=== PATIENT | male | born 1945 | race Hispanic/Latino ===

== ENCOUNTER 2019-02-25 19:04 | Emergency (ER) | payer MEDICARE, MEDICAID ==
--- NOTE | 2019-02-25 20:24 | CT ---
CT head noncontrast HISTORY: Fall. Head injury. FINDINGS: There is no evidence of acute intracranial hemorrhage or infarct. Mild diffuse cortical atr ophy and chronic ischemic small vessel disease. There is no mass effect or shift of midline structures. Visualized paranasal sinuses remain well aerated. IMPRESSION: No acute intracranial abnormalities are demonstrated.
--- NOTE | 2019-02-25 20:57 | RAD ---
RADIOGRAPH RIGHT SHOULDER 3VIEWS: DATE: 02/25/2019 HISTORY: 73-year-old male with acute traumatic right shoulder pain from fall. FINDINGS: There is no dislocation. No fracture is identified. IMPRESSION: No fracture.
--- NOTE | 2019-02-25 21:53 | RAD ---
AP pelvis one view HISTORY: Fall. Pelvic injury. FINDINGS: Sacral alae and pelvic rings are intact. Degenerative changes of the lumbar spine and hips. Postoperative changes of the lumbar spine partially visualized. No displaced fractures are apparent. IMPRESSION: No acute osseous abnormalities are demonstrated.
--- NOTE | 2019-02-25 21:55 | RAD ---
Right RIBS 3 views Chest one view HISTORY: Fall. Chest injury. FINDINGS: Old healed fractures of the posterolateral aspects of right ribs 5 and 8. No acute fracture s evident. No pneumothorax. Mild linear atelectasis at the lung bases, stable. Mediastinum is midline. IMPRESSION: Old right rib fractures. No acute abnormalities are demonstrated.
[2019-02-25] MEDS ORDERED: HYDROcodone/Acetaminophen 5/325 mg Tablet ONE (22:55)
== END 2019-02-25 23:00 | disposition home or self-care (01) ==
LOC: ERS 19:04
DX: S00.81XA Abrasion of other part of head, initial encounter (principal); S80.212A Abrasion, left knee, initial encounter; S80.211A Abrasion, right knee, initial encounter; E78.5 Hyperlipidemia, unspecified; E78.00 Pure hypercholesterolemia, unspecified; R73.03 Prediabetes; I10 Essential (primary) hypertension; Z79.82 Long term (current) use of aspirin; Z79.899 Other long term (current) drug therapy; Z79.84 Long term (current) use of oral hypoglycemic drugs; W01.0XXA Fall on same level from slipping, tripping and stumbling without subsequent striking against object, initial encounter
CPT/HCPCS: 70450; 72170

== ENCOUNTER 2019-10-22 14:56 | Emergency (ER) | payer MEDICARE, MEDICAID, OTHER ==
[2019-10-23 13:48] LABS: SARS-CoV-2 MS2 Positive; SARS-CoV-2 N Gene Positive; SARS-CoV-2 S Gene Positive; SARS-CoV-2 orf1ab Positive
== END 2019-10-22 15:50 | disposition home or self-care (01) ==
LOC: ERS 14:56
DX: U07.1 COVID-19 (principal); E78.5 Hyperlipidemia, unspecified; E78.00 Pure hypercholesterolemia, unspecified; I10 Essential (primary) hypertension; R73.03 Prediabetes; N40.0 Benign prostatic hyperplasia without lower urinary tract symptoms; Z79.82 Long term (current) use of aspirin; Z79.84 Long term (current) use of oral hypoglycemic drugs; Z79.899 Other long term (current) drug therapy
CPT/HCPCS: 99283; U0003; 87635

== ENCOUNTER 2020-07-14 09:37 | Outpatient (CLI) | payer MEDICARE, MEDICAID | END 2020-07-14 09:38 | disposition home or self-care (01) | LOC: BICRAD 09:37 | PROVIDERS: ATTEND Family Medicine | DX: M25.511 Pain in right shoulder (principal); M25.551 Pain in right hip; M79.605 Pain in left leg; M79.641 Pain in right hand; M25.531 Pain in right wrist; M79.631 Pain in right forearm ==

== ENCOUNTER 2020-12-31 15:02 | Outpatient (CLI) | payer MEDICARE, MEDICAID | END 2020-12-31 15:03 | disposition home or self-care (01) | LOC: BICRAD 15:02 | PROVIDERS: ATTEND Family Medicine | DX: J44.9 Chronic obstructive pulmonary disease, unspecified (principal) | CPT/HCPCS: 71046 ==

== ENCOUNTER 2022-05-12 09:43 | Outpatient (CLI) | payer OTHER, MEDICAID | END 2022-05-12 09:44 | disposition home or self-care (01) | LOC: BICRAD 09:43 → ULT 09:44 | PROVIDERS: ATTEND Family Medicine | DX: M79.89 Other specified soft tissue disorders (principal); M79.604 Pain in right leg; M79.605 Pain in left leg; R91.8 Other nonspecific abnormal finding of lung field; I51.7 Cardiomegaly; J98.4 Other disorders of lung; M71.21 Synovial cyst of popliteal space [Baker], right knee | CPT/HCPCS: 71046; 93970 ==

== ENCOUNTER 2022-06-06 07:48 | Outpatient (CLI) | payer OTHER, MEDICAID | END 2022-06-06 07:49 | disposition home or self-care (01) | LOC: ULT 07:48 | PROVIDERS: ATTEND Nurse Practitioner Family | DX: I50.32 Chronic diastolic (congestive) heart failure (principal) | CPT/HCPCS: 76775 ==

== ENCOUNTER 2022-12-26 08:41 | Emergency (ER) | payer OTHER, MEDICAID ==
[2022-12-26] MEDS ORDERED: Acetaminophen 500 MG TAB ONE (09:09)
[2022-12-26] MEDS ORDERED: HYDROcodone/Acetaminophen 5/325 mg Tablet ONE ×2 (09:44→09:47)
== END 2022-12-26 12:33 | disposition home or self-care (01) ==
LOC: ERS 08:41
DX: S13.4XXA Sprain of ligaments of cervical spine, initial encounter (principal); I10 Essential (primary) hypertension; E11.9 Type 2 diabetes mellitus without complications; Z79.84 Long term (current) use of oral hypoglycemic drugs; Z79.899 Other long term (current) drug therapy; V89.2XXA Person injured in unspecified motor-vehicle accident, traffic, initial encounter
CPT/HCPCS: 70450; 71045; 72125

== ENCOUNTER 2022-12-30 15:41 | Inpatient (IN) | payer OTHER, MEDICAID ==
[2022-12-30] MEDS ORDERED: Iopamidol-370 76% 500 ML MDV (1 ML CHARGE) ONE (15:43)
[2022-12-30 16:37] LABS: #Eosinphils 0.1 thou/uL (0.0-0.7); #Monocytes 0.7 thou/uL (0.11-0.59); #Neutrophils 5.5 thou/uL (1.40-6.50); %Basophils 0.4 % (0.0-1.0); %Eosinophils 1.2 % (0.0-10.0); %Lymphocytes 14.6 % (21.0-51.0); %Monocytes 9.7 % (0.0-10.0); %Neutrophils 73.6 % (42.0-75.0); Hematocrit 32.6 % (42.0-52.0); Hemoglobin 10.3 g/dL (14.0-18.0); Mean Corpuscular HGB CONC 31.6 g/dL (32.0-36.0); Mean Corpuscular Hemoglobin 27.8 pg (27.0-31.0); Mean Corpuscular Volume 88.1 fl (78.0-98.0); Mean Platelet Volume 9.5 fL (7.4-10.4); Platelet Count 223 10x3/uL (130-400); RBC Distribution Width 15.8 % (11.5-14.5); White Blood Cell (WBC) Count 7.4 10x3/uL (4.8-10.8)
[2022-12-30 16:53] LABS: INR-International Normal Ratio 1.2; Prothrombin Time 15.2 sec (12.0-14.7)
[2022-12-30 16:54] LABS: PTT 29.4 sec (22.9-36.1)
[2022-12-30] MEDS ORDERED: Morphine 4 MG/ML VIAL ONE ×2 (16:56→18:46)
[2022-12-30 16:58] LABS: ALT (SGPT) 24 U/L (8-55); AST (SGOT) 21 U/L (5-34); Albumin 3.1 g/dL (3.4-4.8); Alkaline Phosphatase 65 U/L (40-110); Anion Gap 16 mmol/L (10-20); BUN (Urea Nitrogen) 20 mg/dL (8.4-25.7); Bilirubin, Total 0.7 mg/dL (0.2-1.2); Calc. Creatinine Clearance 0 mL/min (70-130); Calcium 8.9 mg/dL (7.8-10.44); Carbon Dioxide 17 mmol/L (23-31); Chloride 104 mmol/L (98-107); Estimated GFR 87; Globulin 3.6 g/dL (2.4-3.5); Glucose 169 mg/dL (83-110); Potassium 4.2 mmol/L (3.5-5.1); Protein, Total 6.7 g/dL (5.8-8.1); Sodium 133 mmol/L (136-145)
[2022-12-30] MEDS ORDERED: Ipratropium/Albuterol 3 ML NEB NEB PRN (19:18)
[2022-12-30] MEDS ORDERED: Ondansetron PF 4 MG/2 ML Vial IVP PRN (19:18)
[2022-12-30] MEDS ORDERED: Morphine 2 MG/ML VIAL SLOW IVP PRN (19:18)
[2022-12-30] MEDS ORDERED: hydrALAZINE 20 MG/ML VIAL SLOW IVP PRN (19:18)
[2022-12-30] MEDS ORDERED: traMADol HCl 50 MG TAB PO PRN (19:20)
[2022-12-30] MEDS: Acetaminophen 500 MG TAB PO SCH (22:21)
[2022-12-30] MEDS: Gabapentin 300 MG CAP PO SCH (22:49)
[2022-12-30] MEDS: Senokot S 8.6-50 MG TAB PO SCH (22:49)
[2022-12-30] MEDS: Famotidine/PF 20 mg/2ml Vial SLOW IVP SCH (22:49)
[2022-12-30] MEDS: traMADol HCl 50 MG TAB PO SCH (22:50)
[2022-12-30] MEDS: Sodium Chloride 0.9% 1,000 ML IV SCH (22:50)
[2022-12-30 23:14] VITALS: BMI 29.0
[2022-12-31] MEDS: Acetaminophen 500 MG TAB PO SCH ×2 (00:44→17:47)
[2022-12-31] MEDS: traMADol HCl 50 MG TAB PO SCH (05:52)
[2022-12-31] MEDS: Sodium Chloride 0.9% 1,000 ML IV SCH (05:53)
[2022-12-31 06:58] LABS: #Eosinphils 0.2 thou/uL (0.0-0.7); #Neutrophils 4.1 thou/uL (1.40-6.50); %Basophils 0.5 % (0.0-1.0); %Eosinophils 2.6 % (0.0-10.0); %Lymphocytes 20.6 % (21.0-51.0); %Monocytes 14.5 % (0.0-10.0); %Neutrophils 61.3 % (42.0-75.0); Hematocrit 31.3 % (42.0-52.0); Hemoglobin 9.7 g/dL (14.0-18.0); Mean Corpuscular Hemoglobin 27.3 pg (27.0-31.0); Mean Corpuscular Volume 88.2 fl (78.0-98.0); Mean Platelet Volume 9.3 fL (7.4-10.4); Platelet Count 212 10x3/uL (130-400); Red Blood Cell (RBC) Count 3.55 mill/uL (4.70-6.10); White Blood Cell (WBC) Count 6.6 10x3/uL (4.8-10.8)
[2022-12-31 07:12] LABS: INR-International Normal Ratio 1.2; PTT 26.7 sec (22.9-36.1); Prothrombin Time 15.3 sec (12.0-14.7)
[2022-12-31 07:27] LABS: Anion Gap 9 mmol/L (10-20); BUN (Urea Nitrogen) 20 mg/dL (8.4-25.7); Calc. Creatinine Clearance 91 mL/min (70-130); Calcium 8.6 mg/dL (7.8-10.44); Carbon Dioxide 24 mmol/L (23-31); Chloride 104 mmol/L (98-107); Estimated GFR 91; Glucose 126 mg/dL (83-110); Sodium 133 mmol/L (136-145)
[2022-12-31] MEDS ORDERED: Polyethylene Glycol 3350 17 GM Packet PO SCH (09:00)
[2022-12-31] MEDS: Gabapentin 300 MG CAP PO SCH ×3 (09:21→20:51)
[2022-12-31] MEDS: Senokot S 8.6-50 MG TAB PO SCH ×2 (09:22→20:51)
[2022-12-31] MEDS: Famotidine/PF 20 mg/2ml Vial SLOW IVP SCH ×2 (09:22→20:51)
[2022-12-31] MEDS: Furosemide 20 MG TAB PO SCH ×2 (14:54→20:51)
[2022-12-31] MEDS: Rosuvastatin 20 MG TAB PO SCH (14:54)
[2022-12-31] MEDS: Loratadine 10 MG TAB PO SCH (14:55)
[2022-12-31] MEDS: Acetaminophen 325 MG TAB PO SCH ×3 (14:55→22:06)
[2022-12-31] MEDS ORDERED: Aspirin 325 mg Enteric Coated Tablet PO SCH (16:45)
[2022-12-31] MEDS: Tamsulosin HCl 0.4 MG CAP PO SCH (18:06)
[2023-01-01] MEDS: Acetaminophen 325 MG TAB PO SCH ×4 (05:08→23:15)
[2023-01-01] MEDS ORDERED: Aspirin 325 MG TAB PO SCH (09:00)
[2023-01-01] MEDS: Famotidine/PF 20 mg/2ml Vial SLOW IVP SCH ×2 (10:34→22:56)
[2023-01-01] MEDS: Loratadine 10 MG TAB PO SCH (10:35)
[2023-01-01] MEDS: Furosemide 20 MG TAB PO SCH ×2 (10:35→22:33)
[2023-01-01] MEDS: Senokot S 8.6-50 MG TAB PO SCH ×2 (10:35→22:34)
[2023-01-01] MEDS: Rosuvastatin 20 MG TAB PO SCH (10:35)
[2023-01-01] MEDS: Gabapentin 300 MG CAP PO SCH ×3 (10:36→22:34)
[2023-01-01] MEDS: Aspirin 81 mg Enteric Coated Tablet PO SCH (10:36)
[2023-01-01] MEDS: Polyethylene Glycol 3350 17 GM Packet PO SCH (10:37)
[2023-01-01] MEDS: Tamsulosin HCl 0.4 MG CAP PO SCH ×2 (10:39→17:43)
[2023-01-01] MEDS: HYDROcodone/Acetaminophen 10/325 mg Tablet PO PRN (22:35)
[2023-01-02] MEDS: Acetaminophen 325 MG TAB PO SCH ×4 (04:22→23:53)
[2023-01-02 06:28] LABS: #Eosinphils 0.2 thou/uL (0.0-0.7); #Monocytes 0.8 thou/uL (0.11-0.59); #Neutrophils 4.5 thou/uL (1.40-6.50); %Basophils 0.4 % (0.0-1.0); %Eosinophils 3.2 % (0.0-10.0); %Lymphocytes 18.1 % (21.0-51.0); %Monocytes 11.6 % (0.0-10.0); %Neutrophils 66.1 % (42.0-75.0); Hemoglobin 9.9 g/dL (14.0-18.0); Mean Corpuscular HGB CONC 30.9 g/dL (32.0-36.0); Mean Corpuscular Hemoglobin 27.5 pg (27.0-31.0); Mean Corpuscular Volume 88.9 fl (78.0-98.0); Mean Platelet Volume 9.1 fL (7.4-10.4); Platelet Count 238 10x3/uL (130-400); RBC Distribution Width 16.2 % (11.5-14.5); White Blood Cell (WBC) Count 6.8 10x3/uL (4.8-10.8)
[2023-01-02 06:53] LABS: Anion Gap 12 mmol/L (10-20); BUN (Urea Nitrogen) 18 mg/dL (8.4-25.7); Calc. Creatinine Clearance 73 mL/min (70-130); Calcium 8.7 mg/dL (7.8-10.44); Carbon Dioxide 26 mmol/L (23-31); Chloride 102 mmol/L (98-107); Estimated GFR 78; Glucose 201 mg/dL (83-110); Phosphorus 3.9 mg/dL (2.3-4.7); Potassium 4.3 mmol/L (3.5-5.1); Sodium 136 mmol/L (136-145)
[2023-01-02] MEDS: Loratadine 10 MG TAB PO SCH (08:32)
[2023-01-02] MEDS: Furosemide 20 MG TAB PO SCH ×2 (08:32→20:15)
[2023-01-02] MEDS: Famotidine/PF 20 mg/2ml Vial SLOW IVP SCH ×2 (08:33→20:15)
[2023-01-02] MEDS: Senokot S 8.6-50 MG TAB PO SCH ×2 (08:33→20:15)
[2023-01-02] MEDS: Gabapentin 300 MG CAP PO SCH ×3 (08:33→20:14)
[2023-01-02] MEDS: Rosuvastatin 20 MG TAB PO SCH (08:33)
[2023-01-02] MEDS: Aspirin 81 mg Enteric Coated Tablet PO SCH (08:33)
[2023-01-02] MEDS: Tamsulosin HCl 0.4 MG CAP PO SCH ×2 (08:33→15:42)
[2023-01-02] MEDS: Polyethylene Glycol 3350 17 GM Packet PO SCH (08:34)
[2023-01-02] MEDS: HYDROcodone/Acetaminophen 10/325 mg Tablet PO PRN (20:13)
[2023-01-02] MEDS: Atorvastatin Calcium 40 MG TAB PO SCH (20:15)
[2023-01-03] MEDS: Acetaminophen 325 MG TAB PO SCH ×4 (06:03→23:27)
[2023-01-03 06:09] LABS: Hemoglobin A1c 9.2 % (4.0-6.0)
[2023-01-03 06:14] LABS: Cardiac Risk 3.4 (Less than 4.5)
[2023-01-03] MEDS: Furosemide 20 MG TAB PO SCH ×2 (08:51→20:32)
[2023-01-03] MEDS: Aspirin 81 mg Enteric Coated Tablet PO SCH (08:51)
[2023-01-03] MEDS: Rosuvastatin 20 MG TAB PO SCH (08:51)
[2023-01-03] MEDS: Tamsulosin HCl 0.4 MG CAP PO SCH ×2 (08:51→18:33)
[2023-01-03] MEDS: Loratadine 10 MG TAB PO SCH (08:51)
[2023-01-03] MEDS: Gabapentin 300 MG CAP PO SCH ×3 (08:51→20:32)
[2023-01-03] MEDS: Senokot S 8.6-50 MG TAB PO SCH ×2 (08:51→20:32)
[2023-01-03] MEDS: Famotidine/PF 20 mg/2ml Vial SLOW IVP SCH (08:53)
[2023-01-03] MEDS: HYDROcodone/Acetaminophen 10/325 mg Tablet PO PRN ×2 (09:08→20:31)
[2023-01-03] MEDS: Polyethylene Glycol 3350 17 GM Packet PO SCH (09:16)
[2023-01-03] MEDS ORDERED: Ipratropium/Albuterol 3 ML NEB NEB PRN (13:47)
[2023-01-03] MEDS ORDERED: Ibuprofen 600 MG TAB PO PRN (17:51)
[2023-01-03] MEDS: traMADol HCl 50 MG TAB PO PRN (18:33)
[2023-01-03] MEDS: Ipratropium/Albuterol 3 ML NEB NEB SCH (19:16)
[2023-01-03] MEDS: Atorvastatin Calcium 40 MG TAB PO SCH (20:32)
[2023-01-03] MEDS: Cyclobenzaprine 10 MG TAB PO PRN (20:32)
[2023-01-03] MEDS ORDERED: Famotidine 20 MG TAB PO SCH (21:00)
[2023-01-04] MEDS: Acetaminophen 325 MG TAB PO SCH ×5 (04:27→23:46)
[2023-01-04] MEDS: traMADol HCl 50 MG TAB PO PRN (05:35)
[2023-01-04] MEDS: Cyclobenzaprine 10 MG TAB PO PRN (05:35)
[2023-01-04] MEDS: Ipratropium/Albuterol 3 ML NEB NEB SCH ×2 (07:37→13:14)
[2023-01-04] MEDS: Loratadine 10 MG TAB PO SCH (09:17)
[2023-01-04] MEDS: Aspirin 81 mg Enteric Coated Tablet PO SCH (09:17)
[2023-01-04] MEDS: Gabapentin 300 MG CAP PO SCH ×3 (09:17→21:23)
[2023-01-04] MEDS: Furosemide 20 MG TAB PO SCH ×2 (09:17→21:24)
[2023-01-04] MEDS: Rosuvastatin 20 MG TAB PO SCH (09:17)
[2023-01-04] MEDS: Tamsulosin HCl 0.4 MG CAP PO SCH ×2 (09:18→17:47)
[2023-01-04] MEDS: Polyethylene Glycol 3350 17 GM Packet PO SCH (09:19)
[2023-01-04] MEDS: Senokot S 8.6-50 MG TAB PO SCH ×2 (09:19→21:23)
[2023-01-04] MEDS ORDERED: Losartan 25 MG TAB PO SCH (09:45)
[2023-01-04 11:55] LABS: #Eosinphils 0.2 thou/uL (0.0-0.7); #Monocytes 0.7 thou/uL (0.11-0.59); #Neutrophils 5.4 thou/uL (1.40-6.50); %Basophils 0.3 % (0.0-1.0); %Eosinophils 2.9 % (0.0-10.0); %Lymphocytes 16.6 % (21.0-51.0); %Monocytes 9.6 % (0.0-10.0); %Neutrophils 70.2 % (42.0-75.0); Hemoglobin 10.5 g/dL (14.0-18.0); Mean Corpuscular HGB CONC 30.9 g/dL (32.0-36.0); Mean Corpuscular Hemoglobin 27.3 pg (27.0-31.0); Mean Corpuscular Volume 88.3 fl (78.0-98.0); Mean Platelet Volume 9.1 fL (7.4-10.4); Platelet Count 301 10x3/uL (130-400); RBC Distribution Width 16.9 % (11.5-14.5); Red Blood Cell (RBC) Count 3.85 mill/uL (4.70-6.10); White Blood Cell (WBC) Count 7.7 10x3/uL (4.8-10.8)
[2023-01-04] MEDS: HYDROcodone/Acetaminophen 10/325 mg Tablet PO PRN (21:24)
[2023-01-04] MEDS: Atorvastatin Calcium 40 MG TAB PO SCH (21:24)
[2023-01-05] MEDS: Acetaminophen 325 MG TAB PO SCH ×3 (04:18→16:47)
[2023-01-05] MEDS: Furosemide 20 MG TAB PO SCH (09:00)
[2023-01-05] MEDS ORDERED: Losartan 25 MG TAB PO SCH (09:00)
[2023-01-05] MEDS: Tamsulosin HCl 0.4 MG CAP PO SCH ×2 (09:00→16:47)
[2023-01-05] MEDS: Polyethylene Glycol 3350 17 GM Packet PO SCH (09:00)
[2023-01-05] MEDS: Aspirin 81 mg Enteric Coated Tablet PO SCH (09:00)
[2023-01-05] MEDS: Senokot S 8.6-50 MG TAB PO SCH (09:01)
[2023-01-05] MEDS: Rosuvastatin 20 MG TAB PO SCH (09:02)
[2023-01-05] MEDS: Gabapentin 300 MG CAP PO SCH ×2 (09:02→14:41)
[2023-01-05] MEDS: Loratadine 10 MG TAB PO SCH (09:02)
[2023-01-05 12:41] VITALS: TEMP 98.3
[2023-01-05 16:49] VITALS: BP 155/90
== END 2023-01-05 16:55 | DRG 65 ==
LOC: ERS 15:41 → SJJU 19:20
PROVIDERS: ADMIT Surgery; ATTEND Surgery
DX: I63.81 Other cerebral infarction due to occlusion or stenosis of small artery (principal); G81.94 Hemiplegia, unspecified affecting left nondominant side; S22.049A Unspecified fracture of fourth thoracic vertebra, initial encounter for closed fracture; S22.039A Unspecified fracture of third thoracic vertebra, initial encounter for closed fracture; S22.029A Unspecified fracture of second thoracic vertebra, initial encounter for closed fracture; S22.21XA Fracture of manubrium, initial encounter for closed fracture; S22.31XA Fracture of one rib, right side, initial encounter for closed fracture; S22.019A Unspecified fracture of first thoracic vertebra, initial encounter for closed fracture; S12.600A Unspecified displaced fracture of seventh cervical vertebra, initial encounter for closed fracture; S22.079A Unspecified fracture of T9-T10 vertebra, initial encounter for closed fracture; E78.00 Pure hypercholesterolemia, unspecified; Z79.899 Other long term (current) drug therapy; Z79.84 Long term (current) use of oral hypoglycemic drugs; Z98.890 Other specified postprocedural states; E78.5 Hyperlipidemia, unspecified; E11.22 Type 2 diabetes mellitus with diabetic chronic kidney disease; I12.9 Hypertensive chronic kidney disease with stage 1 through stage 4 chronic kidney disease, or unspecified chronic kidney disease; N18.9 Chronic kidney disease, unspecified; J44.9 Chronic obstructive pulmonary disease, unspecified; N40.0 Benign prostatic hyperplasia without lower urinary tract symptoms; Z79.82 Long term (current) use of aspirin; V49.9XXA Car occupant (driver) (passenger) injured in unspecified traffic accident, initial encounter
CPT/HCPCS: 36415; 70496; 70498; 70551; 71045; 71260; 72128; 72141; 72146; 72148; 74177; 80048; 80053; 80061; 83036; 83735; 84100; 84443; 85025; 85610; 85730; 93005; 93306; 94640; 96374; 96376; G0390; J1650; J2270; J7050; J7620; Q9967; S0028

== ENCOUNTER 2024-01-01 14:12 | Inpatient (IN) | payer MEDICARE, OTHER ==
[2024-01-01 15:32] LABS: #Basophils 0.04 10x3/uL (0.0-0.2); %Basophils 0.4 % (0.0-1.0); %Eosinophils 1.9 % (0.0-10.0); %Lymphocytes 14.9 % (21.0-51.0); %Monocytes 9.1 % (0.0-10.0); %Neutrophils 73.5 % (42.0-75.0); Hematocrit 22.2 % (42.0-52.0); Hemoglobin 6.3 g/dL (14.0-18.0); Mean Corpuscular HGB CONC 28.4 g/dL (32.0-36.0); Mean Corpuscular Hemoglobin 19.9 pg (27.0-31.0); Mean Corpuscular Volume 70.3 fL (78.0-98.0); Mean Platelet Volume 8.8 fL (7.4-10.4); Platelet Count 442 10x3/uL (130-400); RBC Distribution Width 17.7 % (11.5-14.5); Red Blood Cell (RBC) Count 3.16 mill/uL (4.70-6.10)
[2024-01-01 15:53] LABS: ALT (SGPT) 5 U/L (8-55); AST (SGOT) 9 U/L (5-34); Albumin 2.9 g/dL (3.4-4.8); Alkaline Phosphatase 74 U/L (40-110); Anion Gap 15 mmol/L (10-20); BUN (Urea Nitrogen) 21 mg/dL (8.4-25.7); Bilirubin, Total 0.4 mg/dL (0.2-1.2); Calc. Creatinine Clearance 0 mL/min (70-130); Calcium 8.4 mg/dL (7.8-10.44); Carbon Dioxide 21 mmol/L (23-31); Chloride 104 mmol/L (98-107); Estimated GFR 58; Globulin 3.8 g/dL (2.4-3.5); Glucose 174 mg/dL (83-110); Potassium 4.2 mmol/L (3.5-5.1); Protein, Total 6.7 g/dL (5.8-8.1); Sodium 136 mmol/L (136-145)
[2024-01-01 15:56] LABS: Troponin I Less than 0.010 ng/mL (< 0.028)
[2024-01-01 15:57] LABS: INR-International Normal Ratio 1.1; Prothrombin Time 14.6 sec (12.0-14.7)
[2024-01-01 15:58] LABS: PTT 26.8 sec (22.9-36.1)
[2024-01-01 16:01] LABS: Anisocytosis SLIGHT = 6-15 cells HPF (0-5); Hypochromia SLIGHT = 6-15 cells HPF (0-5); Ovalocytes SLIGHT = 2-5 cells HPF (0-1); Platelet Adequacy Comment Platelets Increased; Polychromasia SLIGHT = 2-3 cells HPF (0-2); Schistocytes SLIGHT = 2-5 cells HPF (0-1); Target Cells SLIGHT = 2-5 cells HPF (0-1)
[2024-01-01] MEDS ORDERED: Acetaminophen 325 MG TAB PO PRN (17:15)
[2024-01-01] MEDS ORDERED: Acetaminophen 650 MG Suppository PR PRN (17:15)
[2024-01-01 18:22] LABS: Iron 8 ug/dL (65-175); Iron Binding Capacity, Total 344 mcg/dL (261-462); Transferrin, Serum 275 mg/dL (163-344)
[2024-01-01 18:43] LABS: Ferritin Less than 2.00 ng/mL (22-322); Vitamin B12 512 pg/mL (211-911)
[2024-01-01 20:18] VITALS: BMI 32.3
[2024-01-01] MEDS ORDERED: Glucagon 1 MG/ML KIT IM PRN (21:38)
[2024-01-01] MEDS ORDERED: Dextrose 5% in Water 1,000 ML IV PRN (21:38)
[2024-01-01] MEDS ORDERED: Dextrose 50% Abboject 50 ML SYRINGE SLOW IVP PRN (21:38)
[2024-01-01] MEDS ORDERED: Sodium Ferric Gluconate 250 MG in Sodium Chloride 0.9% 250 ML 250 ML IVPB SCH (21:45)
[2024-01-02 00:07] LABS: Bacteria/HPF None Seen HPF (None Seen); Bilirubin Negative (Negative); Blood, Urine Negative (Negative); CAUTI Indications for Culture Alt mental st,lethar; Clarity Clear (Clear); Glucose, Urine (Dipstick) Normal (Negative); Ketone, Urine Negative (Negative); Leukocyte Negative Leu/uL (Negative); Nitrite Negative (Negative); Protein, Urine (Dipstick) 10 mg/dL (Neg-Trace); RBC/HPF 0-3 HPF (0-3); Specific Gravity, Urine 1.014 (1.002-1.036); Squamous Epithelial None Seen HPF (0-3); WBC/HPF 0-3 HPF (0-3)
[2024-01-02 00:16] LABS: Urine Culture Reflex No No
[2024-01-02 02:32] LABS: #Basophils 0.04 10x3/uL (0.0-0.2); %Basophils 0.4 % (0.0-1.0); %Eosinophils 2.2 % (0.0-10.0); %Lymphocytes 15.1 % (21.0-51.0); %Monocytes 10.9 % (0.0-10.0); %Neutrophils 71.1 % (42.0-75.0); Hematocrit 25.2 % (42.0-52.0); Hemoglobin 7.5 g/dL (14.0-18.0); Mean Corpuscular HGB CONC 29.8 g/dL (32.0-36.0); Mean Corpuscular Hemoglobin 21.5 pg (27.0-31.0); Mean Corpuscular Volume 72.2 fL (78.0-98.0); Mean Platelet Volume 8.6 fL (7.4-10.4); Platelet Count 401 10x3/uL (130-400); RBC Distribution Width 18.3 % (11.5-14.5); Red Blood Cell (RBC) Count 3.49 mill/uL (4.70-6.10)
[2024-01-02 03:13] LABS: ALT (SGPT) 6 U/L (8-55); AST (SGOT) 10 U/L (5-34); Albumin 2.7 g/dL (3.4-4.8); Alkaline Phosphatase 76 U/L (40-110); Anion Gap 13 mmol/L (10-20); BUN (Urea Nitrogen) 18 mg/dL (8.4-25.7); Calc. Creatinine Clearance 72 mL/min (70-130); Calcium 8.7 mg/dL (7.8-10.44); Carbon Dioxide 23 mmol/L (23-31); Chloride 105 mmol/L (98-107); Estimated GFR 72; Globulin 3.8 g/dL (2.4-3.5); Glucose 222 mg/dL (83-110); Protein, Total 6.5 g/dL (5.8-8.1); Sodium 137 mmol/L (136-145)
[2024-01-02 06:24] LABS: #Basophils 0.03 10x3/uL (0.0-0.2); %Basophils 0.3 % (0.0-1.0); %Eosinophils 2.4 % (0.0-10.0); Hematocrit 23.6 % (42.0-52.0); Mean Corpuscular HGB CONC 29.7 g/dL (32.0-36.0); Mean Corpuscular Hemoglobin 21.5 pg (27.0-31.0); Mean Corpuscular Volume 72.6 fL (78.0-98.0); Platelet Count 383 10x3/uL (130-400); RBC Distribution Width 17.7 % (11.5-14.5); Red Blood Cell (RBC) Count 3.25 mill/uL (4.70-6.10)
[2024-01-02 06:25] LABS: Hematocrit 24.1 % (42.0-52.0); Hemoglobin 7.1 g/dL (14.0-18.0)
[2024-01-02 06:37] LABS: Anion Gap 14 mmol/L (10-20); BUN (Urea Nitrogen) 17 mg/dL (8.4-25.7); Calc. Creatinine Clearance 80 mL/min (70-130); Calcium 8.4 mg/dL (7.8-10.44); Carbon Dioxide 19 mmol/L (23-31); Chloride 107 mmol/L (98-107); Estimated GFR 82; Glucose 199 mg/dL (83-110); Potassium 4.1 mmol/L (3.5-5.1); Sodium 136 mmol/L (136-145)
[2024-01-02] MEDS: Pantoprazole DR 40 MG TAB PO SCH (08:48)
[2024-01-02] MEDS ORDERED: Ipratropium/Albuterol 3 ML NEB NEB PRN (09:21)
[2024-01-02 11:59] VITALS: BMI 32.3
[2024-01-02 15:11] LABS: Anion Gap 13 mmol/L (10-20); BUN (Urea Nitrogen) 15 mg/dL (8.4-25.7); Calc. Creatinine Clearance 82 mL/min (70-130); Calcium 8.4 mg/dL (7.8-10.44); Carbon Dioxide 20 mmol/L (23-31); Chloride 106 mmol/L (98-107); Estimated GFR 85; Glucose 252 mg/dL (83-110); Potassium 3.8 mmol/L (3.5-5.1); Sodium 135 mmol/L (136-145)
[2024-01-02] MEDS: Gabapentin 300 MG CAP PO SCH (15:27)
[2024-01-02] MEDS: GoLYTELY 4,000 ml Bottle PO SCH (18:03)
[2024-01-02] MEDS: Tamsulosin HCl 0.4 MG CAP PO SCH (20:42)
[2024-01-02] MEDS: Atorvastatin Calcium 40 MG TAB PO SCH (20:42)
[2024-01-02] MEDS: Pantoprazole 40 MG VIAL IVP SCH (20:42)
[2024-01-03] MEDS ORDERED: Pantoprazole DR 40 MG TAB PO SCH (09:00)
[2024-01-03] MEDS: Aspirin 81 mg Enteric Coated Tablet PO SCH (09:12)
[2024-01-03 10:54] LABS: Anion Gap 13 mmol/L (10-20); BUN (Urea Nitrogen) 10 mg/dL (8.4-25.7); Calc. Creatinine Clearance 88 mL/min (70-130); Calcium 8.8 mg/dL (7.8-10.44); Carbon Dioxide 23 mmol/L (23-31); Chloride 106 mmol/L (98-107); Estimated GFR 89; Glucose 141 mg/dL (83-110); Sodium 138 mmol/L (136-145)
[2024-01-03 11:18] LABS: Band 4 % (5-11); Eosinophils 2 % (0-10); Hypochromia SLIGHT = 6-15 cells HPF (0-5); Lymphocytes 18 % (21-51); Microcytosis SLIGHT = 6-15 cells HPF (0-5); Monocytes 7 % (0-10); Neutrophil 67 % (42-75); Nucleated RBC (Manual Ct) 1 % (0); Platelet Adequacy Comment Platelets Increased; Polychromasia MODERATE = 3-4 cells HPF (0-2)
[2024-01-03 11:27] LABS: Hematocrit 29.6 % (42.0-52.0); Hemoglobin 9.1 g/dL (14.0-18.0); Mean Corpuscular HGB CONC 30.7 g/dL (32.0-36.0); Mean Corpuscular Hemoglobin 22.4 pg (27.0-31.0); Mean Corpuscular Volume 72.9 fL (78.0-98.0); Mean Platelet Volume 9.1 fL (7.4-10.4); Platelet Count 422 10x3/uL (130-400); RBC Distribution Width 18.8 % (11.5-14.5); Red Blood Cell (RBC) Count 4.06 mill/uL (4.70-6.10)
[2024-01-03] MEDS ORDERED: PHENYLEPHRINE-NS 100 MCG/ML 10 ML SYRINGE ONE (11:27)
[2024-01-03] MEDS ORDERED: Iopamidol 370 76% 100 ML VIAL ONE (12:10)
[2024-01-04 05:20] LABS: #Basophils 0.04 10x3/uL (0.0-0.2); %Basophils 0.5 % (0.0-1.0); %Eosinophils 2.9 % (0.0-10.0); %Lymphocytes 17.8 % (21.0-51.0); %Monocytes 12.1 % (0.0-10.0); %Neutrophils 66.4 % (42.0-75.0); Hematocrit 27.5 % (42.0-52.0); Hemoglobin 8.4 g/dL (14.0-18.0); Mean Corpuscular HGB CONC 30.5 g/dL (32.0-36.0); Mean Corpuscular Hemoglobin 22.3 pg (27.0-31.0); Mean Corpuscular Volume 72.9 fL (78.0-98.0); Mean Platelet Volume 8.8 fL (7.4-10.4); Platelet Count 381 10x3/uL (130-400); RBC Distribution Width 19.5 % (11.5-14.5); Red Blood Cell (RBC) Count 3.77 mill/uL (4.70-6.10)
[2024-01-04 05:40] LABS: Anion Gap 11 mmol/L (10-20); BUN (Urea Nitrogen) 8 mg/dL (8.4-25.7); Calc. Creatinine Clearance 89 mL/min (70-130); Calcium 8.5 mg/dL (7.8-10.44); Carbon Dioxide 23 mmol/L (23-31); Chloride 106 mmol/L (98-107); Estimated GFR 89; Glucose 132 mg/dL (83-110); Potassium 3.8 mmol/L (3.5-5.1); Sodium 136 mmol/L (136-145)
[2024-01-04] MEDS ORDERED: Acetaminophen 650 MG Suppository PR PRN (07:56)
[2024-01-04] MEDS ORDERED: Dextrose 50% Abboject 50 ML SYRINGE SLOW IVP PRN (07:57)
[2024-01-04] MEDS ORDERED: Dextrose 5% in Water 1,000 ML IV PRN (07:57)
[2024-01-04] MEDS ORDERED: Glucagon 1 MG/ML KIT IM PRN (07:57)
[2024-01-04] MEDS ORDERED: Acetaminophen 325 MG TAB PO PRN (07:57)
[2024-01-04] MEDS ORDERED: Ipratropium/Albuterol 3 ML NEB NEB PRN (07:58)
[2024-01-04] MEDS: Aspirin 81 mg Enteric Coated Tablet PO SCH (09:17)
[2024-01-04] MEDS: Gabapentin 300 MG CAP PO SCH (09:18)
[2024-01-04] MEDS ORDERED: PROPOFOL 20 ML ONE (09:40)
[2024-01-04] MEDS ORDERED: Lidocaine 1% PF 5 ML VIAL ONE (09:41)
[2024-01-04] MEDS ORDERED: SUCCINYLCHOLINE/SOD CL,ISO/PF 200 MG/10 ML SYRINGE FS ONE (09:41)
[2024-01-04] MEDS ORDERED: Ondansetron PF 4 MG/2 ML Vial ONE (09:41)
[2024-01-04] MEDS ORDERED: Dexamethasone 4 mg/ml Vial ONE (09:41)
[2024-01-04] MEDS ORDERED: Rocuronium Bromide 10 MG/ML (10ML VIAL) ONE (09:41)
[2024-01-04] MEDS ORDERED: Piperacillin/Tazobactam 3.375 GM VIAL ONE (10:01)
[2024-01-04] MEDS ORDERED: Sodium Chloride 0.9% 100 ML ONE (10:01)
[2024-01-04] MEDS ORDERED: fentaNYL PF 100 MCG/2 ML SYRINGE ONE (10:40)
[2024-01-04] MEDS ORDERED: SUGAMMADEX SODIUM 200 MG/2 ML VIAL ONE ×2 (11:45→11:52)
[2024-01-04] MEDS ORDERED: Ondansetron PF 4 MG/2 ML Vial IVP PRN ×2 (12:07→13:28)
[2024-01-04] MEDS ORDERED: fentaNYL 50 mcg/mL 1 mL Vial ONE ×3 (12:51→13:32)
[2024-01-04] MEDS ORDERED: Naloxone HCl 0.4 mg/ml Vial IV PRN (13:28)
[2024-01-04] MEDS ORDERED: Promethazine HCl 25 MG/ML VIAL IM PRN (13:28)
[2024-01-04] MEDS ORDERED: diphenhydrAMINE 50 MG/ML VIAL IM PRN (13:28)
[2024-01-04] MEDS ORDERED: diphenhydrAMINE 25 MG CAP PO PRN (13:28)
[2024-01-04] MEDS ORDERED: diphenhydrAMINE 50 MG/ML VIAL IVP PRN (13:28)
[2024-01-04] MEDS ORDERED: FENTANYL 500 MCG/10 ML VIAL 2,000 MCG in Sodium Chloride 0.9% 60 ML IV PRN (13:28)
[2024-01-04] MEDS ORDERED: Communication Order-Pharmacy FS SCH (13:30)
[2024-01-04] MEDS ORDERED: Fentanyl CADD 100 ML IVPB SCH (13:45)
[2024-01-04] MEDS ORDERED: Sodium Chloride 0.9% 1,000 ML IV SCH (16:15)
[2024-01-04] MEDS: Tamsulosin HCl 0.4 MG CAP PO SCH (21:25)
[2024-01-04] MEDS: Atorvastatin Calcium 40 MG TAB PO SCH (21:26)
[2024-01-05] MEDS: Acetaminophen 325 MG TAB PO SCH (10:07)
[2024-01-05] MEDS: Lactated Ringer's 1,000 ML IV SCH (14:47)
[2024-01-05] MEDS: Acetaminophen 500 MG TAB PO SCH (17:55)
[2024-01-05] MEDS: Enoxaparin 40 MG (0.4 mL) SYRINGE SC SCH (21:20)
[2024-01-06 06:11] LABS: #Basophils 0.03 10x3/uL (0.0-0.2); %Basophils 0.3 % (0.0-1.0); %Monocytes 10.4 % (0.0-10.0); Hematocrit 24.3 % (42.0-52.0); Hemoglobin 7.1 g/dL (14.0-18.0); Mean Corpuscular HGB CONC 29.2 g/dL (32.0-36.0); Mean Corpuscular Hemoglobin 22.8 pg (27.0-31.0); Mean Corpuscular Volume 78.1 fL (78.0-98.0); Platelet Count 342 10x3/uL (130-400); RBC Distribution Width 21.3 % (11.5-14.5); Red Blood Cell (RBC) Count 3.11 mill/uL (4.70-6.10)
[2024-01-06] MEDS: Pantoprazole DR 40 MG TAB PO SCH (09:57)
[2024-01-06] MEDS ORDERED: Lactated Ringer's 1,000 ML IV SCH (10:24)
[2024-01-06 13:07] LABS: #Basophils Less than 0.03 10x3/uL (0.0-0.2); %Basophils 0.2 % (0.0-1.0); %Eosinophils 2.3 % (0.0-10.0); %Monocytes 8.2 % (0.0-10.0); %Neutrophils 77.9 % (42.0-75.0); Hemoglobin 8.9 g/dL (14.0-18.0); Mean Corpuscular HGB CONC 28.7 g/dL (32.0-36.0); Mean Corpuscular Hemoglobin 22.4 pg (27.0-31.0); Mean Corpuscular Volume 78.1 fL (78.0-98.0); Mean Platelet Volume 8.7 fL (7.4-10.4); Platelet Count 378 10x3/uL (130-400); RBC Distribution Width 21.5 % (11.5-14.5); Red Blood Cell (RBC) Count 3.97 mill/uL (4.70-6.10)
[2024-01-07 05:13] LABS: #Basophils Less than 0.03 10x3/uL (0.0-0.2); %Basophils 0.2 % (0.0-1.0); %Eosinophils 2.6 % (0.0-10.0); %Lymphocytes 10.3 % (21.0-51.0); %Monocytes 9.5 % (0.0-10.0); %Neutrophils 77.1 % (42.0-75.0); Hematocrit 26.4 % (42.0-52.0); Hemoglobin 7.8 g/dL (14.0-18.0); Mean Corpuscular HGB CONC 29.5 g/dL (32.0-36.0); Mean Corpuscular Hemoglobin 23.1 pg (27.0-31.0); Mean Corpuscular Volume 78.1 fL (78.0-98.0); Mean Platelet Volume 8.9 fL (7.4-10.4); Platelet Count 329 10x3/uL (130-400); RBC Distribution Width 21.6 % (11.5-14.5); Red Blood Cell (RBC) Count 3.38 mill/uL (4.70-6.10)
[2024-01-07 05:37] LABS: Anion Gap 10 mmol/L (10-20); BUN (Urea Nitrogen) 7 mg/dL (8.4-25.7); Calc. Creatinine Clearance 89 mL/min (70-130); Calcium 8.4 mg/dL (7.8-10.44); Carbon Dioxide 23 mmol/L (23-31); Chloride 104 mmol/L (98-107); Estimated GFR 89; Glucose 145 mg/dL (83-110); Sodium 133 mmol/L (136-145)
[2024-01-07] MEDS: traMADol HCl 50 MG TAB PO PRN (17:00)
[2024-01-08 06:50] LABS: #Basophils Less than 0.03 10x3/uL (0.0-0.2); %Basophils 0.2 % (0.0-1.0); %Eosinophils 1.8 % (0.0-10.0); %Lymphocytes 10.3 % (21.0-51.0); %Monocytes 9.3 % (0.0-10.0); Hematocrit 26.2 % (42.0-52.0); Hemoglobin 7.8 g/dL (14.0-18.0); Mean Corpuscular HGB CONC 29.8 g/dL (32.0-36.0); Mean Corpuscular Hemoglobin 22.8 pg (27.0-31.0); Mean Corpuscular Volume 76.6 fL (78.0-98.0); Mean Platelet Volume 8.9 fL (7.4-10.4); Platelet Count 356 10x3/uL (130-400); RBC Distribution Width 21.7 % (11.5-14.5); Red Blood Cell (RBC) Count 3.42 mill/uL (4.70-6.10)
[2024-01-08 07:17] LABS: Anion Gap 11 mmol/L (10-20); BUN (Urea Nitrogen) 7 mg/dL (8.4-25.7); Calc. Creatinine Clearance 73 mL/min (70-130); Calcium 8.5 mg/dL (7.8-10.44); Carbon Dioxide 25 mmol/L (23-31); Chloride 100 mmol/L (98-107); Estimated GFR 74; Glucose 168 mg/dL (83-110); Sodium 132 mmol/L (136-145)
[2024-01-08] MEDS: Polyethylene Glycol 3350 17 GM Packet PO SCH (08:35)
[2024-01-09] MEDS ORDERED: Iopamidol-370 76% 500 ML MDV (1 ML CHARGE) ONE (10:35)
[2024-01-09] MEDS ORDERED: Piperacillin/Tazobactam 3.375 GM in Sodium Chloride 0.9% 100 ML IVPB SCH ×2 (12:45→19:00)
[2024-01-09 13:35] LABS: #Basophils Less than 0.03 10x3/uL (0.0-0.2); %Basophils 0.2 % (0.0-1.0); %Eosinophils 1.6 % (0.0-10.0); %Lymphocytes 10.3 % (21.0-51.0); %Monocytes 8.2 % (0.0-10.0); %Neutrophils 79.3 % (42.0-75.0); Hematocrit 24.9 % (42.0-52.0); Hemoglobin 7.5 g/dL (14.0-18.0); Mean Corpuscular HGB CONC 30.1 g/dL (32.0-36.0); Mean Corpuscular Hemoglobin 22.9 pg (27.0-31.0); Mean Corpuscular Volume 75.9 fL (78.0-98.0); Mean Platelet Volume 9.2 fL (7.4-10.4); Platelet Count 396 10x3/uL (130-400); RBC Distribution Width 22.1 % (11.5-14.5); Red Blood Cell (RBC) Count 3.28 mill/uL (4.70-6.10)
[2024-01-09] MEDS: Piperacillin/Tazobactam 3.375 GM in Sodium Chloride 0.9% 100 ML IVPB SCH ×2 (13:43→17:02)
[2024-01-09] MEDS: Fluconazole In NaCl,Iso-Osm 400 MG in Premix 1 BAG IVPB SCH (14:51)
[2024-01-09] MEDS: Magnesium Citrate 300 ML BOT PO SCH (14:51)
[2024-01-09 17:53] LABS: #Basophils 0.03 10x3/uL (0.0-0.2); %Basophils 0.2 % (0.0-1.0); %Eosinophils 1.7 % (0.0-10.0); %Monocytes 8.6 % (0.0-10.0); Hematocrit 29.4 % (42.0-52.0); Hemoglobin 8.7 g/dL (14.0-18.0); Mean Corpuscular HGB CONC 29.6 g/dL (32.0-36.0); Mean Corpuscular Hemoglobin 22.8 pg (27.0-31.0); Mean Corpuscular Volume 77.2 fL (78.0-98.0); Mean Platelet Volume 8.9 fL (7.4-10.4); Platelet Count 434 10x3/uL (130-400); RBC Distribution Width 22.5 % (11.5-14.5); Red Blood Cell (RBC) Count 3.81 mill/uL (4.70-6.10)
[2024-01-09 18:15] LABS: Lactic Acid 1.88 mmol/L (0.5-2.2)
[2024-01-09 18:19] LABS: ALT (SGPT) 7 U/L (8-55); AST (SGOT) 13 U/L (5-34); Albumin 2.1 g/dL (3.4-4.8); Alkaline Phosphatase 92 U/L (40-110); Anion Gap 13 mmol/L (10-20); BUN (Urea Nitrogen) 8 mg/dL (8.4-25.7); Bilirubin, Total 0.8 mg/dL (0.2-1.2); Calc. Creatinine Clearance 76 mL/min (70-130); Calcium 8.6 mg/dL (7.8-10.44); Carbon Dioxide 23 mmol/L (23-31); Chloride 100 mmol/L (98-107); Estimated GFR 77; Globulin 4.7 g/dL (2.4-3.5); Glucose 113 mg/dL (83-110); Protein, Total 6.8 g/dL (5.8-8.1); Sodium 132 mmol/L (136-145)
[2024-01-09 18:24] LABS: Troponin I Less than 0.010 ng/mL (< 0.028)
[2024-01-09] MEDS: Lactated Ringer's 1,000 ML IV SCH (19:00)
[2024-01-10 06:51] LABS: #Basophils 0.03 10x3/uL (0.0-0.2); %Basophils 0.2 % (0.0-1.0); %Lymphocytes 14.2 % (21.0-51.0); %Monocytes 8.2 % (0.0-10.0); Hematocrit 28.4 % (42.0-52.0); Hemoglobin 8.2 g/dL (14.0-18.0); Mean Corpuscular HGB CONC 28.9 g/dL (32.0-36.0); Mean Corpuscular Hemoglobin 21.9 pg (27.0-31.0); Mean Corpuscular Volume 75.9 fL (78.0-98.0); Mean Platelet Volume 9.3 fL (7.4-10.4); Platelet Count 453 10x3/uL (130-400); RBC Distribution Width 22.6 % (11.5-14.5); Red Blood Cell (RBC) Count 3.74 mill/uL (4.70-6.10)
[2024-01-10 07:59] LABS: Anisocytosis SLIGHT = 6-15 cells HPF (0-5); Band 2 % (5-11); Elliptocytes SLIGHT = 2-5 cells HPF (0-1); Hypochromia SLIGHT = 6-15 cells HPF (0-5); Lymphocytes 14 % (21-51); Macrocytosis SLIGHT = 6-15 cells HPF (0-5); Monocytes 5 % (0-10); Neutrophil 79 % (42-75); Platelet Adequacy Comment Platelets Normal; Polychromasia SLIGHT = 2-3 cells HPF (0-2)
[2024-01-10] MEDS: Famotidine/PF 20 mg/2ml Vial SLOW IVP SCH (09:01)
[2024-01-11 05:07] LABS: #Basophils 0.03 10x3/uL (0.0-0.2); %Basophils 0.4 % (0.0-1.0); %Eosinophils 3.7 % (0.0-10.0); %Lymphocytes 15.3 % (21.0-51.0); %Monocytes 9.1 % (0.0-10.0); %Neutrophils 71.2 % (42.0-75.0); Hematocrit 23.9 % (42.0-52.0); Hemoglobin 7.1 g/dL (14.0-18.0); Mean Corpuscular HGB CONC 29.7 g/dL (32.0-36.0); Mean Corpuscular Hemoglobin 22.5 pg (27.0-31.0); Mean Corpuscular Volume 75.9 fL (78.0-98.0); Mean Platelet Volume 9.1 fL (7.4-10.4); Platelet Count 404 10x3/uL (130-400); RBC Distribution Width 22.1 % (11.5-14.5); Red Blood Cell (RBC) Count 3.15 mill/uL (4.70-6.10)
[2024-01-11 05:30] LABS: Anion Gap 9 mmol/L (10-20); BUN (Urea Nitrogen) 7 mg/dL (8.4-25.7); Calc. Creatinine Clearance 87 mL/min (70-130); Calcium 7.9 mg/dL (7.8-10.44); Carbon Dioxide 24 mmol/L (23-31); Chloride 105 mmol/L (98-107); Estimated GFR 88; Glucose 153 mg/dL (83-110); Magnesium 2.3 mg/dL (1.6-2.6); Phosphorus 3.5 mg/dL (2.3-4.7); Potassium 3.8 mmol/L (3.5-5.1); Sodium 134 mmol/L (136-145)
[2024-01-11] MEDS: Senokot S 8.6-50 MG TAB PO SCH (09:23)
[2024-01-11] MEDS: Polyethylene Glycol 3350 17 GM Packet PO SCH (09:23)
[2024-01-11] MEDS: Saccharomyces boulardii 250 MG CAP PO SCH (09:31)
[2024-01-11] MEDS: Ascorbic Acid 500 mg Chewable Tablet PO SCH (09:31)
[2024-01-11] MEDS: Ferrous Sulfate 325 MG TAB PO SCH (16:50)
[2024-01-11] MEDS ORDERED: Dextrose 5% in Water 1,000 ML IV PRN (16:55)
[2024-01-11] MEDS: Insulin Lispro 100 UNIT/ML 10 ML VIAL SC PRN (17:28)
[2024-01-12 08:39] LABS: #Basophils 0.03 10x3/uL (0.0-0.2); %Basophils 0.3 % (0.0-1.0); %Eosinophils 3.6 % (0.0-10.0); %Lymphocytes 15.3 % (21.0-51.0); %Monocytes 7.5 % (0.0-10.0); %Neutrophils 72.8 % (42.0-75.0); Hematocrit 25.8 % (42.0-52.0); Hemoglobin 7.5 g/dL (14.0-18.0); Mean Corpuscular HGB CONC 29.1 g/dL (32.0-36.0); Mean Corpuscular Hemoglobin 22.3 pg (27.0-31.0); Mean Corpuscular Volume 76.6 fL (78.0-98.0); Mean Platelet Volume 8.9 fL (7.4-10.4); Platelet Count 473 10x3/uL (130-400); RBC Distribution Width 21.9 % (11.5-14.5); Red Blood Cell (RBC) Count 3.37 mill/uL (4.70-6.10)
[2024-01-12 08:57] LABS: Anion Gap 12 mmol/L (10-20); BUN (Urea Nitrogen) 5 mg/dL (8.4-25.7); Calc. Creatinine Clearance 93 mL/min (70-130); Carbon Dioxide 22 mmol/L (23-31); Chloride 107 mmol/L (98-107); Estimated GFR 90; Glucose 147 mg/dL (83-110); Sodium 137 mmol/L (136-145)
[2024-01-13 06:10] LABS: #Basophils 0.03 10x3/uL (0.0-0.2); %Basophils 0.3 % (0.0-1.0); %Eosinophils 4.1 % (0.0-10.0); %Lymphocytes 19.3 % (21.0-51.0); %Monocytes 8.2 % (0.0-10.0); %Neutrophils 67.7 % (42.0-75.0); Hematocrit 25.8 % (42.0-52.0); Hemoglobin 7.6 g/dL (14.0-18.0); Mean Corpuscular HGB CONC 29.5 g/dL (32.0-36.0); Mean Corpuscular Hemoglobin 22.7 pg (27.0-31.0); Mean Platelet Volume 9.1 fL (7.4-10.4); Platelet Count 531 10x3/uL (130-400); Red Blood Cell (RBC) Count 3.35 mill/uL (4.70-6.10)
[2024-01-13 06:22] LABS: Anion Gap 10 mmol/L (10-20); BUN (Urea Nitrogen) 5 mg/dL (8.4-25.7); Calc. Creatinine Clearance 96 mL/min (70-130); Calcium 8.3 mg/dL (7.8-10.44); Carbon Dioxide 22 mmol/L (23-31); Chloride 109 mmol/L (98-107); Estimated GFR 91; Glucose 110 mg/dL (83-110); Potassium 3.9 mmol/L (3.5-5.1); Sodium 137 mmol/L (136-145)
[2024-01-14 05:50] LABS: #Basophils 0.04 10x3/uL (0.0-0.2); %Basophils 0.4 % (0.0-1.0); %Eosinophils 3.8 % (0.0-10.0); %Lymphocytes 17.5 % (21.0-51.0); %Monocytes 8.6 % (0.0-10.0); %Neutrophils 69.3 % (42.0-75.0); Hemoglobin 7.9 g/dL (14.0-18.0); Mean Corpuscular HGB CONC 29.3 g/dL (32.0-36.0); Mean Corpuscular Hemoglobin 22.3 pg (27.0-31.0); Mean Corpuscular Volume 76.1 fL (78.0-98.0); Mean Platelet Volume 8.9 fL (7.4-10.4); Platelet Count 586 10x3/uL (130-400); RBC Distribution Width 22.5 % (11.5-14.5); Red Blood Cell (RBC) Count 3.55 mill/uL (4.70-6.10)
[2024-01-14 06:03] LABS: Anion Gap 10 mmol/L (10-20); BUN (Urea Nitrogen) 7 mg/dL (8.4-25.7); Calc. Creatinine Clearance 90 mL/min (70-130); Calcium 8.5 mg/dL (7.8-10.44); Carbon Dioxide 22 mmol/L (23-31); Chloride 108 mmol/L (98-107); Estimated GFR 89; Glucose 118 mg/dL (83-110); Sodium 136 mmol/L (136-145)
[2024-01-15] MEDS: Famotidine 20 MG TAB PO SCH (08:50)
[2024-01-15 15:55] VITALS: BP 132/72; TEMP 98
== END 2024-01-15 17:53 | DRG 330 ==
LOC: ERS 14:12 → 2NO 17:26 → OBSVTOIN 01-02 12:38 → UNDODISIN 01-04 17:00 → SURG B 01-04 19:42
PROVIDERS: ADMIT Internal Medicine; ATTEND Internal Medicine
PROC: 30233N1 Transfusion of Nonautologous Red Blood Cells into Peripheral Vein, Percutaneous Approach (ICD-10-PCS; 2024-01-01)
PROC: 0DJ08ZZ Inspection of Upper Intestinal Tract, Via Natural or Artificial Opening Endoscopic (ICD-10-PCS; principal; 2024-01-03)
PROC: 0DBL8ZX Excision of Transverse Colon, Via Natural or Artificial Opening Endoscopic, Diagnostic (ICD-10-PCS; 2024-01-03)
PROC: 3E033XZ Introduction of Vasopressor into Peripheral Vein, Percutaneous Approach (ICD-10-PCS; 2024-01-03)
PROC: 0DTF0ZZ Resection of Right Large Intestine, Open Approach (ICD-10-PCS; 2024-01-04)
DX: C18.3 Malignant neoplasm of hepatic flexure (principal); D62 Acute posthemorrhagic anemia; E87.1 Hypo-osmolality and hyponatremia; R78.81 Bacteremia; K91.89 Other postprocedural complications and disorders of digestive system; E11.9 Type 2 diabetes mellitus without complications; I10 Essential (primary) hypertension; E78.5 Hyperlipidemia, unspecified; D50.9 Iron deficiency anemia, unspecified; G47.33 Obstructive sleep apnea (adult) (pediatric); N40.0 Benign prostatic hyperplasia without lower urinary tract symptoms; R53.81 Other malaise; E88.09 Other disorders of plasma-protein metabolism, not elsewhere classified; Z79.899 Other long term (current) drug therapy; Z79.84 Long term (current) use of oral hypoglycemic drugs; Z90.49 Acquired absence of other specified parts of digestive tract; Z98.890 Other specified postprocedural states
CPT/HCPCS: 36415; 36416; 36430; 71045; 71260; 74177; 80048; 80053; 81001; 81479; 82274; 82378; 82607; 82728; 83540; 83550; 83605; 83735; 83880; 84100; 84443; 84466; 84484; 85025; 85610; 85730; 86850; 86900; 86901; 87040; 87076; 87149; 88305; 88309; 88360; 88361; 93005; 93010; 97139; A4314; G0378; J1100; J1450; J1650; J1815; J2405; J2470; J2543; J2704; J3010; J3490; J7120; P9016; Q9967